=== PATIENT | male | born 1960 | race Hispanic/Latino ===

== ENCOUNTER 2017-10-31 13:42 | Emergency (ER) | payer OTHER ==
[2017-10-31] MEDS ORDERED: OCTYL 2-CYANOACRYLATE 1 EACH TP ONE (14:04)
[2017-10-31] MEDS ORDERED: TETANUS/DIPHTHERIA TOXOID [ADULT] 0.5 ML VIAL IM ONE (14:16)
== END 2017-10-31 14:36 | disposition home or self-care (01) ==
LOC: EDH 13:42
DX: S61.011A Laceration without foreign body of right thumb without damage to nail, initial encounter (principal); E78.5 Hyperlipidemia, unspecified; Z72.0 Tobacco use; W26.8XXA Contact with other sharp object(s), not elsewhere classified, initial encounter; Y93.89 Activity, other specified; Y92.89 Other specified places as the place of occurrence of the external cause; Y99.8 Other external cause status
CPT/HCPCS: 12001; 90471; 90714